=== PATIENT | female | born 1950 | race Caucasian/White ===

== ENCOUNTER 2020-03-28 17:27 | Inpatient (IN) | payer MEDICARE, BC ==
[~2020-03-28] VITALS: Ht 152.4 cm; Wt 41.3 kg
--- NOTE | 2020-03-28 17:40 | NUR ---
ADAMCO FOR ADMISSION TI [facility]. 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 PT WAS BROUGHT IN TO THE ER FOR RAPID COVID TESTING PRIOR TO ADMISSION. PT IS IN STABLE CONDITION. NOT IN ANY DISTRESS, BREATHING EVEN AND UNLABORED. AMBULATORY ON STEADY GAIT.
--- NOTE | 2020-03-28 17:41 | NUR ---
COVID SWAB DONE AND SENT TO LAB
--- NOTE | 2020-03-28 17:52 | NUR ---
PAGED [facility].
[2020-03-28] MEDS ORDERED: TEMAZEPAM 7.5 MG CAPSULE PO PRN (19:00)
[2020-03-28] MEDS ORDERED: MAGNESIUM HYDROXIDE 30 ML UDC PO PRN (19:00)
[2020-03-28] MEDS ORDERED: LORAZEPAM 0.5 MG TABLET PO PRN (19:00)
[2020-03-28] MEDS ORDERED: ACETAMINOPHEN 325 MG TABLET PO PRN (19:00)
[2020-03-28] MEDS ORDERED: MAG HYDROX/AL HYDROX/SIMETH 30 ML UDC PO PRN (19:00)
--- NOTE | 2020-03-28 19:00 | NUR ---
PT TRANSPORTED TO UNIT ON GURNET WITH EMT ON STABLE CONDITION. NAD NOTED DURING TRANSPORT. PT AMBULATED FROM [facility] TO BED
[2020-03-28] MEDS ORDERED: BLOOD SUGAR DIAGNOSTIC 1 EACH STRIP IN ONE (20:00)
--- NOTE | 2020-03-28 20:37 | NUR ---
GPS RN NOTE: PT REFUSED ACCU-CHEK AT 2029 STATING "I DON'T WANT IT". WHEN ASKED IF SHE'S DIABETIC PT REFUSED TO ANSWER. WILL CONTINUE TO MONITOR.
[2020-03-28 23:59] VITALS: BP 139/68
--- NOTE | 2020-03-29 01:35 | NUR ---
GPS RN NOTE ADMITTING NOTE: ADMITTED A 69 Y/O FEMALE FROM [facility], ORIGINALLY FROM [facility]. PT IS ON A 5150 HOLD FOR DTS/GD PLACED ON 03/27/2020 @ 2315. PER HOLD PT LEFT [facility] WHERE SHE RESIDES AND WAS FOUND BY HER FRIEND WALKING IN THE MIDDLE OF THE STREET. PER CRISIS TEAM, PT WAS UNABLE TO FORMULATE HER OWN PLAN OF CARE. PT TOLD CRISIS TEAM SHE LEFT [facility] DUE TO ANXIETY AND FEAR AND ALSO REPORTED SHE DOES NOT WANT TO GO BACK THERE BECAUSE SHE DOES NOT FEEL SAFE. UPON FACE TO FACE EVALUATION PT IS A/O X 1-2, APPEARS DEPRESSED, FLAT AFFECT, FORGETFUL, DISORGANIZED, CONFUSED, ANXIOUS, UNCOOPERATIVE, AGITATED, LOUD, REFUSED SKIN CHEK, REFUSED ACCU CHEK, AND MEDICATION. DEMANDING TO LEAVE. TRYING TO AWOL. PT IS DISPLAYING NO S/S OF OF APPARENT DISTRESS. RESPIRATION EVEN AND UNLABORED WITH EQUAL RISE AND FALL OF THE CHEST, ON ROOM AIR, SPO2 97%. PT REFUSED TO SIGN ALL ADMISSION PAPERS, REFUSED SKIN ASSESSMENT AND ACCU-CHEK. PT HAS WEAK/UNSTEADY GAIT AND IS HIGH FALL RISK. PT HAS NO NEEDS AT THIS TIME. PER PT SHE HAS NO MEDICAL CONDITION BUT DOCUMENT SHOWS PT HAS HTN AND UTI. PT IS UNDER THE PSYCHIATRIC CARE OF DR CARRIZALES, AND MEDICAL CARE OF DR SALOMON. PT BELONGINGS INVENTORIED, NO CONTRABAND FOUND. PT ORIENTED TO UNIT, STAFF AND DOCTORS, AND A COPY OF PRESCRIPTION GUIDE GIVEN, BUT PT UNABLE TO COMPREHEND. FLUID AND SNACKS GIVEN TOLERATED. PT BED ALARM IS ON, SIDE RAILS ARE UP X2 FOR SAFETY, BED IN LOW LOCKED POSITION. CARE PLAN INITIATED. WILL MONITOR Q15 AND Q1HR FOR SAFETY, MOOD AND BEHAVIOR.
[2020-03-29 08:00] VITALS: BP 104/79
[2020-03-29 15:21] LABS: BASOPHILS # (AUTO) 0.1 /CMM (0.0-0.2); BASOPHILS % (AUTO) 0.5 % (0.0-2.0); EOSINOPHILS % (AUTO) 0.7 % (0.0-6.0); HEMATOCRIT 46 % (33-45); HEMOGLOBIN 14.9 g/dL (11.5-14.8); LYMPHOCYTES # (AUTO) 1.5 /CMM (0.8-4.8); LYMPHOCYTES % (AUTO) 14.7 % (20.0-44.0); MEAN CORPUSCULAR HGB CONC 32 g/dl (31.0-36.0); MEAN CORPUSCULAR VOLUME 96 fL (82-100); MONOCYTES # (AUTO) 0.8 /CMM (0.1-1.30); MONOCYTES % (AUTO) 7.9 % (2.0-12.0); NEUTROPHILS # (AUTO) 7.8 /CMM (1.8-8.9); NEUTROPHILS % (AUTO) 76.2 % (43.0-81.0); WHITE BLOOD COUNT (AUTO) 10.2 K/uL (4.3-11.0)
[2020-03-29 15:34] LABS: CHOLESTEROL 224 mg/dL (<200); HDL CHOLESTEROL 53 mg/dL (40-60); LDL 143 mg/dL (0-99); TRIGLYCERIDES 227 mg/dL (30-150)
[2020-03-29 15:35] LABS: ALBUMIN 3.7 g/dL (3.4-5.0); BILIRUBIN,TOTAL 0.5 mg/dL (0.2-1.0); CALCIUM, SERUM 9.6 mg/dL (8.5-10.1); CREATININE 1.2 mg/dL (0.6-1.3); POTASSIUM 4.3 mmol/L (3.5-5.1); TOTAL PROTEIN, SERUM 7.3 g/dL (6.4-8.2)
[2020-03-29 15:55] LABS: PLATELET COUNT (AUTO) 255 /CMM (150-450)
[2020-03-29 16:00] VITALS: BP 107/63
[2020-03-29] MEDS: ENSURE ENLIVE 237 ML LIQUID (VANILLA) PO SCH (16:49)
[2020-03-29 20:29] LABS: APPEARANCE,URINE CLEAR (CLEAR); BILIRUBIN,URINE NEGATIVE (NEGATIVE); BLOOD, URINE TRACE-INTA Ery/uL (NEGATIVE); COLOR,URINE YELLOW (YELLOW); KETONES,URINE NEGATIVE (NEGATIVE); LEUKOCYTE ESTERASE ,URINE NEGATIVE (NEGATIVE); NITRITE, URINE NEGATIVE (NEGATIVE); PH,URINE 5.5 (5.0-8.0); PROTEIN,URINE NEGATIVE (NEGATIVE); UGLUCOSE NEGATIVE (NEGATIVE); UROBILINOGEN,URINE 0.2 EU/dL (0.2)
[2020-03-29 20:32] VITALS: BP 124/76
[2020-03-29 20:38] LABS: BACTERIA,URINE 1+ /HPF (None Seen)
[2020-03-29 20:39] LABS: MUCUS,URINE Few /LPF (None Seen); SQUAMOUS EPITHELIAL CELL,UR 0-2 /HPF (None Seen); URINE AMORPHOUS URATE Few /HPF (None Seen)
--- NOTE | 2020-03-29 23:05 | NUR ---
RN NOTES : DR. CARRIZALES IN THE UNIT , PT. SEEN BY DR. CARRIZALES.
[2020-03-29] MEDS: risperiDONE 0.25 MG TABLET PO SCH (23:36)
--- NOTE | 2020-03-30 06:30 | NUR ---
RN NOTES: PT. RESTING IN HER ROOM , NO ACUTE DISTRESS/ CHANGES NOTED, ALL NEEDS ANTICIPATED, WILL CONTINUITY WITH CARE.
[2020-03-30 08:00] VITALS: BP 119/68
[2020-03-30] MEDS: ENSURE ENLIVE 237 ML LIQUID (VANILLA) PO SCH ×3 (08:44→17:00)
[2020-03-30] MEDS: risperiDONE 0.25 MG TABLET PO SCH ×2 (12:08→23:32)
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
--- NOTE | 2020-03-30 15:22 | NUR ---
Initial Discharge Plan: Pt currently resides at [facility] located at [address] [place] [address]; ([phone]). Per pt, she would like to be placed in an alternative facility but not a nursing facility. SW will work with the pt and the MD regarding appropriate discharge planning. SW will form a safe and proper plan.
[2020-03-30 16:00] VITALS: BP 118/73
--- NOTE | 2020-03-30 17:00 | NUR ---
[facility]SA SWAB DONE OF RT. NARES.SENT TO LAB.
[2020-03-30 20:09] VITALS: BP 114/71
--- NOTE | 2020-03-30 23:00 | NUR ---
GPS RN NOTE PATIENT SEEN BY DR. CARRIZALES WITH NO NEW ORDERS AT THIS TIME.
[2020-03-31 08:00] VITALS: BP 102/70
[2020-03-31] MEDS: ENSURE ENLIVE 237 ML LIQUID (VANILLA) PO SCH ×3 (09:38→17:35)
[2020-03-31] MEDS: risperiDONE 0.25 MG TABLET PO SCH (12:22)
[2020-03-31 16:00] VITALS: BP 112/69
--- NOTE | 2020-03-31 16:18 | NUR ---
wanders out of rm. periodically,confused and forgetful,pleasant.
[2020-03-31 20:04] VITALS: BP 119/69
[2020-03-31] MEDS: risperiDONE 1 MG TABLET PO SCH (20:07)
[2020-03-31] MEDS: MIRTAZAPINE 15 MG TABLET PO SCH (22:00)
--- NOTE | 2020-03-31 22:55 | NUR ---
GPS RN NOTES: REFUSED REMERON PT REFUSED REMERON DUE AT DUE AT 2200. PT STATED, "ILL TAKE IT TOMORROW. ILL DO THAT AND START. " EXPLAIN RISKS AND BENEFITS. PT STILL REFUSED X3. CONTINUE TO MONITOR.
[2020-04-01 05:45] VITALS: BP 115/70
[2020-04-01] MEDS: risperiDONE 1 MG TABLET PO SCH ×2 (05:58→17:58)
[2020-04-01 07:14] LABS: CARBON DIOXIDE 28 mmol/L (21-32); CHLORIDE 102 mmol/L (98-107); CREATININE 0.5 mg/dL (0.6-1.3); GLUCOSE 89 mg/dL (74-106); POTASSIUM 4.3 mmol/L (3.5-5.1); SODIUM SERUM 137 mmol/L (136-145); UREA NITROGEN, BLOOD 17 mg/dL (7-18)
[2020-04-01 08:00] VITALS: BP 103/70
[2020-04-01] MEDS: ENSURE ENLIVE 237 ML LIQUID (VANILLA) PO SCH ×3 (08:27→17:10)
[2020-04-01 16:00] VITALS: BP 116/76
[2020-04-01 20:00] VITALS: BP 132/71
[2020-04-01 20:19] VITALS: BP 132/71
[2020-04-01] MEDS: MIRTAZAPINE 15 MG TABLET PO SCH (21:23)
[2020-04-02] MEDS: risperiDONE 1 MG TABLET PO SCH ×2 (06:03→17:54)
--- NOTE | 2020-04-02 06:35 | NUR ---
GPS RN NOTE PATIENT SLEPT WELL AT NIGHT. MED COMPLAINT. NO CHANGES NOTED.
[2020-04-02 08:00] VITALS: BP 134/76
[2020-04-02] MEDS: ENSURE ENLIVE 237 ML LIQUID (VANILLA) PO SCH ×3 (08:27→17:53)
--- NOTE | 2020-04-02 15:45 | NUR ---
Facility Contact: MANSOOR called [facility] located at [address] [place] [address]; ([phone]) and spoke to Farzana to confirm that the pt has moved out of the facility and cannot return.
[2020-04-02 16:00] VITALS: BP 124/80
--- NOTE | 2020-04-02 16:05 | NUR ---
SNF Referral: MANSOOR faxed a referral to [facility] with attention to Jenny to the fax number: [phone].
[2020-04-02 20:21] VITALS: BP 116/66
[2020-04-02] MEDS: MIRTAZAPINE 15 MG TABLET PO SCH (21:12)
[2020-04-02 21:27] VITALS: BP 120/69
[2020-04-03] MEDS: risperiDONE 1 MG TABLET PO SCH ×3 (06:19→21:25)
[2020-04-03] MEDS: ENSURE ENLIVE 237 ML LIQUID (VANILLA) PO SCH ×3 (07:46→16:11)
[2020-04-03 08:00] VITALS: BP 110/72
[2020-04-03 16:00] VITALS: BP 111/73
[2020-04-03 20:22] VITALS: BP 110/73
[2020-04-03] MEDS: MIRTAZAPINE 15 MG TABLET PO SCH (21:24)
--- NOTE | 2020-04-03 21:25 | NUR ---
GPS RN NOTE: MEDICATION REFUSAL PT. REFUSED 2199 SCHEDULED MEDICATION, RISPERDAL 0.5 MG PO. STATES " I ALREADY TOOK RISPERDAL, I DON'T WANT TO TAKE IT AGAIN." EXPLAINED RISKS AND BENEFITS. OFFERED 3 X AND PT. STILL REFUSED. WILL CONTINUE TO MONITOR FOR SAFETY AND BEHAVIOR. Addendum: 04/05/20 at 0107 by TATA BERGMAN RN 2100 MEDICATION
[2020-04-04 08:00] VITALS: BP 119/72
[2020-04-04] MEDS: risperiDONE 0.25 MG TABLET PO SCH ×2 (08:14→16:29)
[2020-04-04] MEDS: ENSURE ENLIVE 237 ML LIQUID (VANILLA) PO SCH ×3 (08:14→16:29)
[2020-04-04 16:00] VITALS: BP 103/67
[2020-04-04 20:15] VITALS: BP 116/82
[2020-04-04] MEDS: risperiDONE 1 MG TABLET PO SCH (21:00)
[2020-04-04] MEDS: MIRTAZAPINE 15 MG TABLET PO SCH (21:09)
--- NOTE | 2020-04-04 21:12 | NUR ---
GPS RN NOTE: MEDICATION REFUSAL PT. REFUSED 2099 SCHEDULED MEDICATION, RISPERDAL 0.5 MG PO. STATES " I ALREADY TOOK RISPERDAL TWO TIMES." EXPLAINED RISKS AND BENEFITS. OFFERED 3 X AND PT. STILL REFUSED. WILL CONTINUE TO MONITOR FOR SAFETY AND BEHAVIOR.
[2020-04-05 08:00] VITALS: BP 124/87
[2020-04-05] MEDS: risperiDONE 0.25 MG TABLET PO SCH ×2 (08:27→16:35)
[2020-04-05] MEDS: ENSURE ENLIVE 237 ML LIQUID (VANILLA) PO SCH ×3 (08:27→16:35)
[2020-04-05 16:00] VITALS: BP 128/82
[2020-04-05 20:00] VITALS: BP 130/74
[2020-04-05] MEDS: risperiDONE 1 MG TABLET PO SCH (20:42)
[2020-04-05 21:43] VITALS: BP 115/75
[2020-04-05] MEDS: MIRTAZAPINE 15 MG TABLET PO SCH (21:46)
[2020-04-06 08:00] VITALS: BP 114/76
[2020-04-06] MEDS: ENSURE ENLIVE 237 ML LIQUID (VANILLA) PO SCH ×3 (08:48→16:24)
[2020-04-06] MEDS ORDERED: risperiDONE 1 MG TABLET PO SCH (09:00)
--- NOTE | 2020-04-06 09:30 | NUR ---
MANSOOR Individual Therapy: SW met with pt to provide brief counseling. Pt appeared to be disorganized and disoriented. Pt was unable to have a proper conversation due to her dementia. Pt was fixated on her 0561 document and was unable to process what this literary writer was explaining. This literary writer had to explain multiple times why she is brought to the hospital and she was unable to accept that she has a mental illness. This literary writer had to re-direct pt multiple times.
[2020-04-06] MEDS: risperiDONE 0.25 MG TABLET PO SCH ×2 (09:34→16:23)
[2020-04-06 16:00] VITALS: BP 117/78
[2020-04-06 21:02] VITALS: BP 106/70
[2020-04-06] MEDS: MIRTAZAPINE 15 MG TABLET PO SCH (21:16)
[2020-04-07 08:00] VITALS: BP 129/77
[2020-04-07] MEDS: risperiDONE 0.25 MG TABLET PO SCH ×2 (08:40→16:42)
[2020-04-07] MEDS: ENSURE ENLIVE 237 ML LIQUID (VANILLA) PO SCH ×3 (08:44→16:42)
--- NOTE | 2020-04-07 13:35 | NUR ---
Social Work Family Contact: Spoke with sister in law Niru ([phone]) and is aware and agreeable.
[2020-04-07 16:00] VITALS: BP 107/56
[2020-04-07 20:47] VITALS: BP 116/69
[2020-04-07] MEDS: MIRTAZAPINE 15 MG TABLET PO SCH (21:08)
[2020-04-08 08:00] VITALS: BP 122/72
[2020-04-08] MEDS: ENSURE ENLIVE 237 ML LIQUID (VANILLA) PO SCH ×3 (08:40→17:56)
[2020-04-08] MEDS: risperiDONE 0.25 MG TABLET PO SCH ×2 (09:00→18:21)
[2020-04-08 16:00] VITALS: BP 113/59
[2020-04-08 20:09] VITALS: BP 112/71
[2020-04-08 20:50] VITALS: BP 112/71
[2020-04-08] MEDS: MIRTAZAPINE 15 MG TABLET PO SCH (21:36)
--- NOTE | 2020-04-09 06:03 | NUR ---
GPS RN NOTE PATIENT SLEPT WELL AT NIGHT. NO BEHAVIOR EPISODE NOTED. REDIRECTABLE.
[2020-04-09 08:00] VITALS: BP 125/75
--- NOTE | 2020-04-09 08:05 | NUR ---
Social Work Family Contact: Spoke with sister in law Niru ([phone]) and left a detailed voicemail in regard to patient's discharge information.
--- NOTE | 2020-04-09 08:10 | NUR ---
Social Work Discharge Note: Patient will be discharged to [facility] facility, [place] [address]; ) via Ambulance transportation at 12PM. Patients sister in law Niru ([phone]) is aware and agreeable. Editor Map spoke with [facility] Dining Car Waiter/Waitress at [facility]; ([phone]), who stated patient will be accepted back at facility today. Patient is alert and oriented x1-2 and is unable to plan for self-care. Patient denies any suicidal or homicidal ideations. Patient is aware and agreeable with discharge plans. Patient will continue to follow-up with Psychiatrist Dr. Monterroso and Italian Tutor Dr. Love at [facility]. Patient presents with euthymic mood and congruent affect.
[2020-04-09] MEDS: ENSURE ENLIVE 237 ML LIQUID (VANILLA) PO SCH ×2 (08:11→12:46)
[2020-04-09] MEDS: risperiDONE 0.25 MG TABLET PO SCH (08:11)
--- NOTE | 2020-04-09 09:04 | NUR ---
DR. CARRIZALES GAVE AN ORDER TO D/C HOLD AND D/C TO [facility], CONTINUE SAME MEDS INCLUDING PRN AND TO FOLLOW UP WITH PSYCH AND MEDICAL DOCTORS. Addendum: 04/09/20 at 0921 by VINCENZO SCHAFFER RN DR. SALOMON MADE AWARE OF THE DISCHARGE AND RECONCILED THE MEDS.
--- NOTE | 2020-04-09 14:25 | NUR ---
GPS/RN PT DISCHARGED TO [facility], REPORT GIVEN TO ACCEPTING FACILITY [facility]. PROPERTY RETURNED. NO SI OR HI AT THE TIME OF D/C REPORTED. VSS. AMBULATORY NO ACUTE DISTRESS NOTED. EXIT CARE AND MEDS LIST GIVEN . PT REFUSED TO SIGN D/C PAPERWORK. LEFT VIA AMBULANCE
== END 2020-04-09 14:25 | DRG 885 ==
LOC: ER 17:30 → GPS 18:06
PROVIDERS: ADMIT Psychiatry & Neurology Psychiatry; ATTEND Internal Medicine
DX: F29 Unspecified psychosis not due to a substance or known physiological condition (principal); F23 Brief psychotic disorder; F03.90 Unspecified dementia, unspecified severity, without behavioral disturbance, psychotic disturbance, mood disturbance, and anxiety; F41.9 Anxiety disorder, unspecified; F32.9 Major depressive disorder, single episode, unspecified; Z91.81 History of falling; Z73.6 Limitation of activities due to disability; R53.1 Weakness; R03.0 Elevated blood-pressure reading, without diagnosis of hypertension
CPT/HCPCS: 36415; 80048-TC; 80053-TC; 80061-TC; 81000-TC; 85025-TC; 87081-TC; 87086-TC